=== PATIENT | female | born 1995 | race Hispanic/Latino ===

== ENCOUNTER 2024-02-12 17:07 | Emergency (ER) | payer SELFPAY ==
[2024-02-12] MEDS ORDERED: ONDANSETRON 4 MG/2 ML VIAL ONE (17:29)
[2024-02-12] MEDS ORDERED: NA CHLORIDE 0.9% 1,000 ML ONE (17:29)
[2024-02-12] MEDS ORDERED: KETOROLAC 30 MG/ML INJ ONE (17:29)
[2024-02-12] MEDS ORDERED: FAMOTIDINE 20 MG/2 ML VIAL IV ONE (17:29)
[2024-02-12 17:37] LABS: Specific Gravity 1.023 (1.005-1.030)
[2024-02-12 17:41] LABS: Specific Gravity 1.023 (1.005-1.030); Urine Bacteria <20 /HPF (<20); Urine Bilirubin 2+ (Negative); Urine Blood Negative (Negative); Urine Clarity Turbid (Clear); Urine Color Dark-Yellow (Yellow); Urine Culture Reflex Order NOT NEEDED; Urine Glucose NEGATIVE (Negative); Urine Ketones NEGATIVE (Negative); Urine Microscopic Reflex YN ORDER UMIC; Urine Mucus Slight /HPF (None Seen); Urine Nitrite NEGATIVE (Negative); Urine Protein TRACE (Negative); Urine RBC <5 /HPF (None Seen); Urine Urobilinogen 1+ (Normal); Urine WBC <5 /HPF (<5); Urine pH 6.5 (5.0-7.0)
[2024-02-12 17:42] LABS: Absolute Basophils 0.1 K/uL (0-0.5); Absolute Eosinophils 0.2 K/uL (0-0.5); Absolute Lymphocytes (CBC) 1.5 K/uL (0.7-4.9); Absolute Monocytes 0.7 K/uL (0.1-1.3); Absolute Neutrophil 8.3 K/uL (1.8-8.0); Basophils % 0.5 % (0-1.3); Eosinophils % 1.6 % (0-4.4); Hematocrit 42.7 % (36.0-45.0); Hemoglobin 14.5 g/dL (12.0-15.0); MCH 30.5 pg (27.0-35.0); MCHC 33.9 g/dL (32.0-36.0); MCV 89.9 fL (80-100); MPV 8.4 fL (7.6-11.3); Monocytes % 6.7 % (3.3-12.3); Neutrophils % 77.2 % (41.7-73.7); Nucleated Red Blood Cells % 0.2 % (0-0); Platelets 430 thou/uL (152-406); RBC Red Blood Cell Count 4.75 M/uL (3.86-4.86); Red Cell Distribution Width 13.1 % (12.1-15.2)
[2024-02-12 17:52] LABS: Albumin 3.8 g/dL (3.4-5.0); Albumin/Globulin Ratio 0.9 (1.1-1.8); Anion Gap 7.8 mEq/L (5.0-15.0); Bilirubin Total 4.7 mg/dL (0.2-1.0); Globulin 4.3 g/dL (2.3-3.5); Potassium 3.8 mEq/L (3.5-5.1); Protein, Total 8.1 g/dL (6.4-8.2)
--- NOTE | 2024-02-12 18:23 | RAD REPORT ---
EXAM DESCRIPTION: US - Abdomen Exam Limited - 02/12/2024 5:47 pm CLINICAL HISTORY: Abdominal pain. COMPARISON: None. FINDINGS: Multiple gallstones are present. Small amount of sludge is present gallbladder. Gallbladder wall upper limits thickness. The biliary tree is normal caliber. IMPRESSION: Cholelithiasis with small of sludge
--- NOTE | 2024-02-12 20:29 | ER ---
Nurse's Notes [facility] Name: Sofia Acosta Age: 28 yrs Sex: Female : 1995 Arrival Date: 02/12/2024 Time: 17:07 Bed 15 Private MD: Diagnosis: Abnormal results of liver function studies;Upper abdominal pain, unspecified;Other cholelithiasis without obstruction Presentation: 02/11 17:14 Chief complaint: Patient states: stomach pains since 2 am , took some antiacid and has iw not helped , vomiting this morning. Coronavirus screen: Client presents with at least one sign or symptom that may indicate coronavirus-19. Ebola Screen: No symptoms or risks identified at this time. Initial Sepsis Screen: Does the patient meet any 2 criteria? No. Patient's initial sepsis screen is negative. Does the patient have a suspected source of infection? No. Patient's initial sepsis screen is negative. Risk Assessment: Do you want to hurt yourself or someone else?. Onset of symptoms was February 12, 2024. 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 - Infectious Disease History:: Denies. - Social history:: Smoking status: Smoking status: Patient denies any tobacco usage or history of. Screenin:35 [facility] ED Fall Risk Assessment (Adult) History of falling in the last 3 months, mb9 including since admission No falls in past 3 months (0 pts) Confusion or Disorientation No (0 pts) Intoxicated or Sedated No (0 pts) Impaired Gait No (0 pts) Mobility Assist Device Used No (0 pt) Altered Elimination No (0 pt) Score/Fall Risk Level 0 - 2 = Low Risk Oriented to surroundings, Maintained a safe environment, Educated pt \T\ family on fall prevention, incl call for assistance when getting out of bed. Abuse screen: Denies threats or abuse. Nutritional screening: No deficits noted. Tuberculosis screening: No symptoms or risk factors identified. Assessment: 17:25 General: Appears in no apparent distress. Behavior is calm, cooperative. mb9 17:25 Pain: Complains of pain in abdomen Pain does not radiate. Pain currently is 8 out of 10 mb9 on a pain scale. Quality of pain is described as throbbing, Pain began suddenly, Is intermittent. Neuro: Ochoa Agitation-Sedation Scale (RASS): 0 - Alert and Calm Level of Consciousness is awake, alert, obeys commands, Oriented to person, place, time, situation, Appropriate for age. Cardiovascular: Patient's skin is warm and dry. Respiratory: Airway is patent Respiratory effort is even, unlabored, Respiratory pattern is regular, symmetrical, Breath sounds are clear bilaterally. GI: Abdomen is round non-distended, Bowel sounds present X 4 quads. Abd is soft and non tender X 4 quads. Reports nausea. : No signs and/or symptoms were reported regarding the genitourinary system. EENT: No signs and/or symptoms were reported regarding the EENT system. Derm: Skin is pink, warm \T\ dry. Musculoskeletal: Range of motion: intact in all extremities. 17:36 Reassessment: Ultrasound at bedside. mb9 19:55 Reassessment: Patient appears in no apparent distress at this time. pc2 21:00 Reassessment: Patient appears in no apparent distress at this time. Patient is alert, pc2 oriented x 3, equal unlabored respirations, skin warm/dry/pink. 22:00 Reassessment: Patient appears in no apparent distress at this time. Patient and/or pc2 family updated on plan of care and expected duration. Pain level reassessed. Patient is alert, oriented x 3, equal unlabored respirations, skin warm/dry/pink. Vital Signs: 17:14 BP 128 / 95; Pulse 75; Resp 16; Temp 98.6; Pulse Ox 96% ; Weight 77.56 kg; Height 4 ft. iw 9 in. ; Pain 8/10; 20:00 BP 115 / 79; Pulse 60; Resp 16; Pulse Ox 99% ; pc2 22:00 BP 119 / 89; Pulse 58; Resp 16; Temp 98.4; Pulse Ox 97% on R/A; pc2 17:14 Body Mass Index 37.00 (77.56 kg, 144.78 cm) iw 17:14 Pain Scale: Adult iw ED Course: 17:10 Patient arrived in ED. mr 17:12 Bina Patricia, [facility] kb 17:12 Naseem Martin MD is Attending Physician. kb 17:16 Triage completed. iw 17:16 Arm band placed on. iw 17:34 CBC with Diff Sent. mb9 17:34 CMP Sent. mb9 17:34 Lipase Sent. mb9 17:34 Test, Urine Sent. mb9 17:34 Urinalysis w/ reflexes Sent. mb9 17:34 Initial lab(s) drawn, by me, sent to lab. Urine collected: clean catch specimen, nasir mb9 colored. Inserted saline lock: 20 gauge in right antecubital area, using aseptic technique. Blood collected. Flushed with 10 mL NS. 17:35 Placed in gown. Bed in low position. Call light in reach. Side rails up X 1. Provided mb9 Education on: press call light if needing anything. Client placed on continuous cardiac and pulse oximetry monitoring. NIBP monitoring applied. Door closed. Noise minimized. Warm blanket given. Pillow given. 17:49 Abdomen Limited US In Process Unspecified. EDMS 18:10 LEATHA LINARES, RN is Primary Nurse. dd2 18:10 No provider procedures requiring assistance completed. mb9 20:27 Protime (+inr) Sent. pc2 20:27 Ptt, Activated Sent. pc2 20:28 Initial lab(s) drawn, by nh, coags. pc2 20:41 [facility] called to initiate transfer, spoke with bandar. ty 21:52 MOT approval given by Bandar [place]. [facility] called for patient transport. ty 22:05 Report given to HONG Arce receiving to [facility] [place], [place] room 1830. pc2 22:14 Patient transferred, IV remains in place. pc2 Administered Medications: 17:30 Drug: NS 0.9% IV 1000 ml IV at 1 bolus Per protocol; 1000 mL bolus Route: IV; Rate: 1 mb9 bolus; Site: right antecubital; 18:18 Follow up: Response: No adverse reaction; IV Status: Completed infusion mb9 17:30 Drug: Ondansetron IVP 4 mg IVP once; over 2 minutes Route: IVP; Site: right antecubital;mb9 18:10 Follow up: Response: No adverse reaction mb9 17:33 Drug: TORadol - Ketorolac IVP 15 mg IVP once Route: IVP; Site: right antecubital; mb9 18:10 Follow up: Response: No adverse reaction mb9 17:34 Drug: Famotidine IVP 20 mg IVP once; dilute with 10 mL 0.9% NaCl; give over 2 minutes mb9 Route: IVP; Site: right antecubital; 18:10 Follow up: Response: No adverse reaction mb9 22:45 Drug: morphine IVP or IV 4 mg IVP once over 4 mins Route: IVP; Infused Over: 4 mins; jj7 Site: right antecubital; Medication: 17:34 VIS not applicable for this client. mb9 Outcome: 20:28 ER care complete, transfer ordered by . regina 22:13 Transferred by [facility]. to [facility], Transfer form pc2 completed. 22:13 Condition: stable 22:13 Instructed on the need for admit, Demonstrated understanding of instructions, 23:16 Patient left the ED. pc2 Signatures: Dispatcher [employer] EDMS Bina Patricia, MEMBER OF PARLIAMENT-C MEMBER OF PARLIAMENT-Ckb Sofia Villagran, Reg Reg mr Micki Sanchez, RN HONG iw Severino Hector RN RN jSofia Cordoba, RN RN mb9 Mil Malin Pam, RN RN pc2 LEATHA LINARES RN RN dd2 Corrections: (The following items were deleted from the chart) 17:16 17:14 BP 128 / 95; Pulse 75bpm; Resp 16bpm; Temp 98.6F; iw yamil
--- NOTE | 2024-02-12 20:29 | EDPHYS ---
Physician Documentation [facility] Name: Sofia Acosta Age: 28 yrs Sex: Female : 1995 Arrival Date: 02/12/2024 Time: 17:07 Bed 15 Private MD: ED Physician Naseem Martin HPI: 02/11 18:18 This 28 yrs old Female presents to ER via Ambulatory with complaints of kb Abdominal Pain. 18:18 Pt is a 28 year old female who presents for epigastric pain that woke her up at 0200. kb States she started vomiting at 0800. Pain has been constant since then. Denies diarrhea, fever. . 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 - Infectious Disease History:: Denies. - Social history:: Smoking status: Smoking status: Patient denies any tobacco usage or history of. ROS: 18:17 Constitutional: As per HPI kb Exam: 18:17 Constitutional: This is a well developed, well nourished patient who is awake, alert, kb and in no acute distress. Head/Face: Normocephalic, atraumatic. ENT: Moist Mucous membranes Cardiovascular: Regular rate Respiratory: Respirations even and unlabored. No increased work of breathing. Talking in full sentences Skin: Warm, dry with normal turgor. Normal color. MS/ Extremity: Pulses equal, no cyanosis. Neurovascular intact. Full, normal range of motion. Neuro: Awake and alert, GCS 15, oriented to person, place, time, and situation. Moves all extremities. Normal gait. 18:17 Abdomen/GI: Inspection: abdomen appears normal, Bowel sounds: normal, Palpation: soft, in all quadrants, mild abdominal tenderness, in the epigastric area and left upper quadrant, Vital Signs: 17:14 BP 128 / 95; Pulse 75; Resp 16; Temp 98.6; Pulse Ox 96% ; Weight 77.56 kg; Height 4 ft. iw 9 in. ; Pain 8/10; 20:00 BP 115 / 79; Pulse 60; Resp 16; Pulse Ox 99% ; pc2 22:00 BP 119 / 89; Pulse 58; Resp 16; Temp 98.4; Pulse Ox 97% on R/A; pc2 17:14 Body Mass Index 37.00 (77.56 kg, 144.78 cm) iw 17:14 Pain Scale: Adult iw MDM: 17:12 Patient medically screened. kb 18:32 Management of patient was discussed with the following: Spindle Tester: attempted to consult Dr Urrutia with no answer, will try again. 20:00 Differential diagnosis: cholecystitis, Cholelithiasis, gastritis, gastroesophageal kb reflux disease, non-specific abd pain, pancreatitis. Data reviewed: vital signs, nurses notes. Consideration of Admission/Observation Escalation of care including admission/observation considered. Pt will be transferred due to lack of GI that could perform ERCP. Management of patient was discussed with the following: Spindle Tester: Attempted to consult Dr Urrutia, no answer. Counseling: I had a detailed discussion with the patient and/or guardian regarding the historical points, exam findings, and any diagnostic results supporting the discharge/admit diagnosis, lab results, radiology results, the need to transfer to another facility, [facility] does not immediately have the required specialist. 21:32 Management of patient was discussed with the following: Dr Potter accepts pt for transfer to [facility]. 02/11 17:16 Order name: CBC with Diff; Complete Time: 17:50 kb 02/11 17:16 Order name: CMP; Complete Time: 17:59 kb 02/11 17:16 Order name: Lipase; Complete Time: 17:59 kb 02/11 17:16 Order name: Test, Urine; Complete Time: 17:46 kb 02/11 17:16 Order name: Urinalysis w/ reflexes; Complete Time: 17:46 kb 02/11 20:15 Order name: Protime (+inr); Complete Time: 21:15 kb 02/11 20:15 Order name: Ptt, Activated; Complete Time: 21:15 kb 02/11 17:16 Order name: Abdomen Limited US; Complete Time: 18:24 kb 02/11 17:16 Order name: IV Saline Lock; Complete Time: 17:33 kb 02/11 17:16 Order name: Labs collected and sent; Complete Time: 17:33 kb Administered Medications: 17:30 Drug: NS 0.9% IV 1000 ml IV at 1 bolus Per protocol; 1000 mL bolus Route: IV; Rate: 1 mb9 bolus; Site: right antecubital; 18:18 Follow up: Response: No adverse reaction; IV Status: Completed infusion mb9 17:30 Drug: Ondansetron IVP 4 mg IVP once; over 2 minutes Route: IVP; Site: right antecubital;mb9 18:10 Follow up: Response: No adverse reaction mb9 17:33 Drug: TORadol - Ketorolac IVP 15 mg IVP once Route: IVP; Site: right antecubital; mb9 18:10 Follow up: Response: No adverse reaction mb9 17:34 Drug: Famotidine IVP 20 mg IVP once; dilute with 10 mL 0.9% NaCl; give over 2 minutes mb9 Route: IVP; Site: right antecubital; 18:10 Follow up: Response: No adverse reaction mb9 22:45 Drug: morphine IVP or IV 4 mg IVP once over 4 mins Route: IVP; Infused Over: 4 mins; jj7 Site: right antecubital; Disposition Summary: 02/12/24 20:28 Transfer Ordered Notes: Transfer Location: [facility] kb Reason: Higher level of care kb Condition: Stable kb Problem: new kb Symptoms: are unchanged kb Accepting Physician: Dr Potter(02/12/24 23:16) pc2 Diagnosis - Abnormal results of liver function studies kb - Upper abdominal pain, unspecified kb - Other cholelithiasis without obstruction kb Forms: - Medication Reconciliation Form kb - SBAR form kb Signatures: Dispatcher [employer] Bina Acevedo, AUDIT PRACTICE INTERN-C AUDIT PRACTICE INTERN-CkMicki Cardoso RN RN iw Johnson, Juwairiyah RN RN jjSofia Palafox RN RN mb9 Josette Davies, RN RN pc2 Corrections: (The following items were deleted from the chart) 21:33 20:28 Dr tapia kb 23:16 21:33 Dr Tariq tapia pc2
[2024-02-12 21:08] LABS: PT Prothrombin Time 11.4 SECONDS (9.4-12.5); PTT, Activated Partial Thromb 29.6 SECONDS (24.3-36.9); Protime INR 1.02
[2024-02-12] MEDS ORDERED: MORPHINE 4 MG/ML SYR ONE (22:47)
[2024-02-12 23:50] VITALS: BP 119/89; TEMP 98.4; O2SAT 97
== END 2024-02-12 23:16 | disposition short-term general hospital (02) ==
LOC: ER 17:07
DX: K80.80 Other cholelithiasis without obstruction (principal); R94.5 Abnormal results of liver function studies
CPT/HCPCS: 36415; 76705; 80053; 81001; 81025; 83690; 85025; 85610; 85730; 96361; 96374; 96375; 99285; J2405; J7030